=== PATIENT | female | born 1990 | race Two or more races ===

== ENCOUNTER 2017-01-03 02:00 | Emergency (ER) | payer OTHER ==
[~2017-01-03] VITALS: Ht 167.6 cm; Wt 72.6 kg
[~2017-01-03 02:00] MED LIST: DiphenhydrAMINE 50mg/ml Inj IVP ONE; Famotidine 20 MG/ 2ML VIAL IVP ONE; Ketorolac 30mg Inj IV ONE; Metoclopramide 10mg/2ml Inj IVP ONE
[2017-01-03 02:05] VITALS: BP 132/80
--- NOTE | 2017-01-03 02:14 | Emergency Room Report ---
History of Present Illness General Chief Complaint: Abdominal Pain Source: Patient, EMS Present Illness HPI Patient presents with right upper quadrant pain. Radiating towards her back. She was recently diagnosed as having gallstones. This pain feels similar. She feels nauseated but hasn't vomited. There is no pain medication at home other than motrin, but she didn't try taking this. She doesn't believe she is . She denies any dysuria, diarrhea or constipation. Pain 10/10. No fevers. The ultrasound was done at [facility]. Allergies: Coded Allergies: No Known Allergies (Unverified , 01/03/17) Patient History Past Medical History: see triage record Social History: Denies: smoking Social History Narrative at home Last Menstrual Period: Unknown Now: No Reviewed Nursing Documentation: PMH: Agreed, PSxH: Agreed Nursing Documentation-PMH Past Medical History: No History, Except For Review of Systems All Other Systems: negative except mentioned in HPI Physical Exam Vital Signs Date Time Temp Pulse Resp B/P Pulse Ox O2 Delivery O2 Flow Rate FiO2 01/03/17 01:58 98.1 75 18 132/80 98 Room Air Sp02 EP Interpretation: reviewed, normal General Appearance: well appearing, no apparent distress, GCS 15 Head: normocephalic Eyes: bilateral eye PERRL, bilateral eye anticteric, bilateral eye normal inspection ENT: moist mucus membranes Neck: supple Respiratory: lungs clear, normal breath sounds Cardiovascular #1: regular rate, rhythm Cardiovascular #2: 2+ radial (R) Gastrointestinal: normal inspection, normal bowel sounds, no mass, non- distended, no rebound, guarding - RUQ, tenderness Musculoskeletal: back normal, gait/station normal, normal range of motion Neurologic: alert, oriented x3, grossly normal Psychiatric: mood/affect normal Skin: normal inspection, warm/dry Medical Decision Making Diagnostic Impression: Primary Impression: Abdominal pain Qualified Codes: R10.11 - Right upper quadrant pain Additional Impressions: Gall bladder pain UTI (urinary tract infection) Qualified Codes: N30.00 - Acute cystitis without hematuria ER Course The patient presents with right upper quadrant pain. The presentation is consistent with gallstones. Therefore it's important to rule out cholecystitis. The patient will undergo evaluation with labs, and receive IV hydration and analgesia. An ultrasound was recently done and depending on the labs may need to be repeated at this time. Differential also includes peptic ulcer disease gastritis pyelonephritis and urinary tract infection. The patient still has significant pain and more analgesics have been ordered. Labs were remarkable for elevated liver function tests but the bilirubin is normal white count is normal. Pain now 5/10, more suprapubic. Rocephin given for UTI. She declines pyridium. Patient is improved after analgesia. Patient is stable for outpatient observation and treatment. Laboratory Tests Test 01/03/17 02:15 White Blood Count 6.5 K/UL (4.8-10.8) Red Blood Count 4.27 M/UL (4.20-5.40) Hemoglobin 13.5 G/DL (12.0-16.0) Hematocrit 39.3 % (37.0-47.0) Mean Corpuscular Volume 92 FL (80-99) Mean Corpuscular Hemoglobin 31.5 PG (27.0-31.0) H Mean Corpuscular Hemoglobin Concent 34.3 G/DL (32.0-36.0) Red Cell Distribution Width 11.6 % (11.6-14.8) Platelet Count 218 K/UL (150-450) Mean Platelet Volume 7.5 FL (6.5-10.1) Neutrophils (%) (Auto) 59.6 % (45.0-75.0) Lymphocytes (%) (Auto) 28.3 % (20.0-45.0) Monocytes (%) (Auto) 9.3 % (1.0-10.0) Eosinophils (%) (Auto) 1.5 % (0.0-3.0) Basophils (%) (Auto) 1.4 % (0.0-2.0) Prothrombin Time 10.7 SEC (9.30-11.50) Prothrombin Time INR 1.1 (0.9-1.1) PTT 26 SEC (23-33) Urine Color Yellow Urine Appearance Clear Urine pH 6.5 (4.5-8.0) Urine Specific [place] 1.015 (1.005-1.035) Urine Protein Negative (NEGATIVE) Urine Glucose (UA) Negative (NEGATIVE) Urine Ketones Negative (NEGATIVE) Urine Occult Blood Negative (NEGATIVE) Urine Nitrite Negative (NEGATIVE) Urine Bilirubin Negative (NEGATIVE) Urine Urobilinogen 1 MG/DL (0.0-1.0) H Urine Leukocyte Esterase 2+ (NEGATIVE) H Urine RBC 0-2 /HPF (0 - 2) Urine WBC 5-10 /HPF (0 - 2) H Urine Squamous Epithelial Cells Many /LPF (NONE/OCC) H Urine Bacteria Moderate /HPF (NONE) H Sodium Level 138 mEQ/L (135-145) Potassium Level 3.8 mEQ/L (3.4-4.9) Chloride Level 100 mEQ/L (98-107) Carbon Dioxide Level 28 mEQ/L (20-30) Anion Gap 10 (5-15) Blood Urea Nitrogen 6 mg/dL (7-23) L Creatinine 0.7 mg/dL (0.5-0.9) Estimate Glomerular Filtration Rate > 60 mL/min (>60) Glucose Level 78 mg/dL (74-106) Calcium Level 8.8 mg/dL (8.6-10.2) Total Bilirubin 0.4 mg/dL (0.0-1.2) Aspartate Amino Transferase (AST) 136 U/L (5-40) H Alanine Aminotransferase (ALT) 73 U/L (3-33) H Alkaline Phosphatase 54 U/L (35-104) Total Protein 6.8 g/dL (6.6-8.7) Albumin 3.8 g/dL (3.5-5.2) Globulin 3.0 g/dL Albumin/Globulin Ratio 1.2 (1.0-2.7) Lipase 36 U/L (< 60) Human Chorionic Gonadotropin, Quant < 1 mIU/mL Last Vital Signs Date Time Temp Pulse Resp B/P Pulse Ox O2 Delivery O2 Flow Rate FiO2 01/03/17 05:46 98.1 75 18 111/72 98 Room Air Status: improved Disposition: HOME, SELF-CARE Condition: Improved Scripts Nitrofurantoin Monohyd/M-Cryst* (MACROBID 100 MG*) 100 Mg Capsule 100 MG ORAL EVERY 12 HOURS, #14 CAP Prov: Aaron Kelley M.D. 01/03/17 Hydrocodone Bit/Acetaminophen 5-325* (NORCO 5-325*) 1 Each Tablet 1 TAB ORAL Q6H Y for For Pain, #10 TAB 0 Refills Prov: Aaron Kelley M.D. 01/03/17 Ibuprofen* (MOTRIN*) 600 Mg Tablet 600 MG ORAL Q6H Y for For Pain, #20 TAB Prov: Aaron Kelley M.D. 01/03/17 Aaron Kelley M.D. Jan 03, 2017 02:14
[2017-01-03 02:33] LABS: APPEARANCE,URINE CLEAR; KETONES,URINE NEGATIVE (NEGATIVE); LEUKOCYTE ESTERASE ,URINE 2+ (NEGATIVE); NITRITE,URINE NEGATIVE (NEGATIVE); PH,URINE 6.5 (4.5-8.0); PROTEIN,URINE NEGATIVE (NEGATIVE); UROBILINOGEN,URINE 1 MG/DL (0.0-1.0)
[2017-01-03 02:35] LABS: BASOPHILS % (AUTO) 1.4 % (0.0-2.0); EOSINOPHILS % (AUTO) 1.5 % (0.0-3.0); LYMPHOCYTES % (AUTO) 28.3 % (20.0-45.0); MEAN CORPUSCULAR HEMOGLOBIN 31.5 PG (27.0-31.0); MEAN CORPUSCULAR HGB CONC 34.3 G/DL (32.0-36.0); MEAN CORPUSCULAR VOLUME 92 FL (80-99); MEAN PLATELET VOLUME 7.5 FL (6.5-10.1); MONOCYTES % (AUTO) 9.3 % (1.0-10.0); NEUTROPHILS % (AUTO) 59.6 % (45.0-75.0); PLATELET COUNT 218 K/UL (150-450); RED BLOOD COUNT 4.27 M/UL (4.20-5.40); RED CELL DISTRIBUTION WIDTH 11.6 % (11.6-14.8); WHITE BLOOD COUNT 6.5 K/UL (4.8-10.8)
[2017-01-03 02:49] LABS: INR 1.1 (0.9-1.1); PROTHROMBIN TIME 10.7 SEC (9.30-11.50)
[2017-01-03 02:50] LABS: ALANINE AMINOTRANSFERASE 73 U/L (3-33); ALBUMIN/GLOBULIN RATIO 1.2 (1.0-2.7); ANION GAP 10 (5-15); ASPARTATE AMINO TRANSFERASE 136 U/L (5-40); BACTERIA,URINE MODERATE /HPF; CALCIUM 8.8 mg/dL (8.6-10.2); CARBON DIOXIDE 28 mEQ/L (20-30); CHLORIDE 100 mEQ/L (98-107); CREATININE 0.7 mg/dL (0.5-0.9); GLOMERULAR FILTRATION RATE > 60 mL/min (>60); HEMOLYSIS 9; LIPASE 36 U/L (< 60); POTASSIUM 3.8 mEQ/L (3.4-4.9); RBC,URINE 0-2 /HPF (0 - 2); SODIUM 138 mEQ/L (135-145); SQUAMOUS EPITHELIAL CELL,UR MANY /LPF (NONE/OCC); TOTAL PROTEIN 6.8 g/dL (6.6-8.7)
[2017-01-03] MEDS ORDERED: cefTRIAXone 1 GM in NS 55 ML IVPB ONE (03:00)
[2017-01-03 04:05] VITALS: BP 115/75
[2017-01-03] MEDS ORDERED: Morphine Sulfate 4mg/ml Inj IVP ONE (04:15)
[2017-01-03] MEDS ORDERED: IBUPROFEN600 MG ORAL (05:32)
[2017-01-03] MEDS ORDERED: NITROFURANTOIN100 M2 ORAL (05:32)
[2017-01-03] MEDS ORDERED: NORCO 5-325 TA1 EACH ORAL (05:32)
[2017-01-03 05:46] VITALS: BP 111/72
== END 2017-01-03 05:45 | disposition home or self-care (01) ==
LOC: EDBD 02:00 → EMR 02:20
DX: R10.11 Right upper quadrant pain (principal); N30.00 Acute cystitis without hematuria; R11.0 Nausea; M54.9 Dorsalgia, unspecified; R79.89 Other specified abnormal findings of blood chemistry
CPT/HCPCS: 36415; 80053; 81003; 83690; 84702; 85025; 85610; 85730; 87086; 87181; 96360; 96374; 96375; 99284; J0696; J1200; J1885; J2270; J2765; S0028